=== PATIENT | male | born 1940 | race Caucasian/White ===

== ENCOUNTER → 2019-12-18 | Outpatient (CLI) | payer MEDICARE ==
--- NOTE | 2019-12-18 14:30 | Diagnostic Imaging Report ---
PROCEDURE: CT head without contrast. TECHNIQUE: Multiple contiguous axial images were obtained through the brain without the use of intravenous contrast. Auto Exposure Controls were utilized during the CT exam to meet ALARA standards for radiation dose reduction. INDICATION: Dizziness. COMPARISON: None. FINDINGS: No large acute territorial ischemia, mass, or hemorrhage. Chronic microvascular disease is seen in the periventricular and subcortical white matter. The ventricles and cortical sulci are prominent, consistent with generalized volume loss. The basilar cisterns are patent and unremarkable. The calvarium is intact. The visualized paranasal sinuses are clear. IMPRESSION: 1. No large acute territorial ischemia, mass, or hemorrhage. 2. Chronic microvascular disease. 3. Generalized volume loss. Dictated by: Dictated on workstation # [id number]
== END ==
LOC: CARD 13:32
PROVIDERS: ATTEND Family Medicine
DX: I99.8 Other disorder of circulatory system (principal); R42 Dizziness and giddiness
CPT/HCPCS: 70450; 93306

== ENCOUNTER → 2021-08-13 | Outpatient (CLI) | payer MEDICARE ==
--- NOTE | 2021-08-13 11:28 | Diagnostic Imaging Report ---
INDICATION: Left shoulder pain, picking something up with shoulder popped. TECHNIQUE: Three views of the left shoulder CORRELATION STUDY: None FINDINGS: There is diastases at the acromioclavicular joint. Maybe owing to prior surgery or perhaps osteolysis from prior trauma. Alignment otherwise relatively anatomic. Glenohumeral alignment appears maintained. There is some soft tissue calcification along superior lateral humeral head likely owing to chronic calcific tendinosis. No acute bony abnormality. IMPRESSION: 1. Negative for acute bony abnormality of the left shoulder. Findings do suggest degenerative change along with likely chronic calcific tendinosis. Additionally, there has either been prior surgery with resection distal clavicle versus osteomyelitis perhaps from prior injury. Given symptoms, if further assessment desired, MRI would be recommended. Dictated by: Dictated on workstation # [id number]
== END ==
LOC: RAD FS 10:06
PROVIDERS: ATTEND Nurse Practitioner
DX: M25.512 Pain in left shoulder (principal)
CPT/HCPCS: 73030

== ENCOUNTER 2021-10-24 14:06 | Emergency (ER) | payer MEDICARE ==
[~2021-10-24] VITALS: Ht 177.8 cm; Wt 85.7 kg
--- OUTSIDE RECORDS SUMMARY | 2021-10-24 14:11 | XMS REPORT | Clinical Summary ---
Author Author [facility] Organization [facility] Address Unknown Phone Unavailable Care Team Providers Care Plastics Sheet Finishing Press Operator Name Role Phone Rufus Mabry MD Unavailable Unavailable José PAGE PA-C, James R Unavailable [phone] Lucrecia Dang MD PCP Unavailable Source Comments Some departments are not documenting in the electronic medical record. If you d o not see the information that you expected, contact Release of Information in [facility] [employer] Information Management department at [phone] for further assistan ce in locating additional records.[facility] Allergies No known active allergies Medications End Date Status Medication Sig Dispensed Refills Start Date Active MULTIVITAMIN PO Take 1 Tab by 0 mouth daily. Active GLUC GONZALES DIPO CH/LARISA Take 1 Tab by 0 GONZALES/C/JUSTIN (GLUCOSAM GONZALES mouth daily. [id number] PO) Active Vacuum Erection Device Use vacuum 1 Kit 0 System kitIndications: ED erection 5 (erectile dysfunction) device as directed for post-prostate ctomy ED (137.48). Active other medication 1 Dose. 0 Testosterone boost Active Needle (Disp) 27 G 27 Use as 20 each 11/29 gauge x 1/2" directed. 8 ndleIndications: Erectile dysfunction following radical prostatectomy Active Syringe (Disposable) 1 mL Use as 20 Syringe 11 syrgIndications: Erectile directed. 8 dysfunction following radical prostatectomy Active donepezil (ARICEPT) 10 mg 0 tablet 8 Active mercaptopurine 0 (PURINETHOL) 50 mg tablet 9 Active celecoxib (CELEBREX) 200 0 mg capsule 9 Active alprostadil 20 mcg/mL Inject 0.4 mL 10 mL 3 soln IC into base of 0 inj(cmpd)Indications: penis as erectile dysfunction directed as Needed. Max 1 injection/ 24-48 hrs. Indications: the inability to have an erection Active Problems Problem Noted Date History of prostate cancer Overview: Formatting of this note might be differ ent from the original. PSA = 14.3 ng/mL. PNBx (01/16/2014): cT1c; (R) [place] 4+ 3=7, 2/6 cores, 80-90%; (R) [place] 3+4=7, 1/6 cores, 90%; (R) [place] 3+3= 6, 2/6 cores, 5-75%; (L) [place] 3+3=6, 1/6 cores, 25%; Cyst [place] 4+3 =7; Dr. Hamilton. (L) Nerve Sparing Robotic Asst Lap Pros tatectomy -- 03/05/2014; Dr. Mabry. pT3b N0 Mx, [place] 4+3=7, Margins Nega tive. L ast Assessment & Plan: Formatting of this note might be differ ent from the original. PSA reviewed & remains undetectable. RTC 1 yr w/ PSA prior. Erectile dysfunction following radical prostatectomy Overview: Formatting of this note might be differ ent from the original. (+)baseline ED prior to radical prostat ectomy. Used Viagra or Levitra prior to surgery w/ satisfactory results. Failed post-prostatectomy Viagra. Trie d Viagra 100 mg w/o satisfactory results. Obtained vacuum erection device (HARSHAD). Taught penile injection technique -- . Functional erections w/ Alprostadil 20 mcg/mL; 0.6 mL/inj. -- decreased to 0.4 mL/ inj w/ satisfac tory results. L ast Assessment & Plan: Formatting of this note might be differ ent from the original. Continue Alprostadil 8 mcg/ inj prn. Advised against using ICI and PDE-5 inh ibitors w/in 24-48 hrs of each other. HEMANTH (stress urinary incontinence), male Overview: Formatting of this note might be differ ent from the original. Post-Prostatectomy HEMANTH L ast Assessment & Plan: Formatting of this note might be differ ent from the original. Continue Kegel exercises prn. Surgical History Surgery Date Site/Laterality Comments BACK SURGERY HX KNEE ARTHROSCOPY HX TONSILLECTOMY HX ROTATOR CUFF REPAIR Right HX ROTATOR CUFF REPAIR Left RADICAL PROSTATECTOMY 03/05/2014 (L) Nerve [place] KUMAR; Dr. Mabry INGUINAL HERNIA REPAIR w/ mesh Medical History Medical History Date Comments Arthritis Prostate cancer (HCC) 01/16/2014 Erectile dysfunction Inflammatory bowel disease Osteoarthritis HEMANTH (stress urinary incontinence), 03/19/2014 Pos t-Prostatectomy HEMANTH male Family History Medical History Relation Name Comments Cancer Other Diabetes Other Relation Name Status Comments Daughter Alive Other Social History Date Tobacco Use Types Packs/Day Years Used Never Smoker Smokeless Tobacco: Never Used Comments Alcohol Use Standard Drinks/Week No 0 (1 standard drink = 0.6 o z pure alcohol) Sex Assigned at Date Recorded Male 03/06/2021 8:29 AM CDT Last Filed Vital Signs Reading Time Taken Comments Vital Sign 129/70 03/07/2019 10:23 AM CDT Blood Pressure 67 03/07/2019 10:23 AM CDT Pulse 36.3 C (97.4 F) 03/06/2014 11:35 AM CDT Temperature - - Respiratory Rate 100% 03/06/2014 11:35 AM CDT Oxygen Saturation - - Inhaled Oxygen Concentration 86.6 kg (191 lb) 03/07/2019 10:23 AM CDT Weight 177.8 cm (5' 10") 03/07/2019 10:23 AM CDT Height 27.41 03/07/2019 10:23 AM CDT Body Mass Index Plan of Treatment Health Maintenance Due Date Last Done Comments MEDICARE ANNUAL WELLNESS 1940 VISIT DTAP/TDAP VACCINES (1 - 1959 Tdap) PHYSICAL (COMPREHENSIVE) 1959 EXAM SHINGLES RECOMBINANT 1991 VACCINE (1 of 2) PNEUMONIA (PPSV23) 2006 VACCINE (1 of 1 - PPSV23) INFLUENZA VACCINE 06/29/2021 Results Not on filefrom Last 3 Months Insurance Type Payer Benefit Subscriber ID Effective Phone Address Plan / Dates Group Medicare UHC MEDICARE UHC [id number] 2020-P [phone] MEDICARE resent [id number] [place] [id number] Advance Directives Patient Nursing Clinical Director Explanation Type Date Recorded Advance 03/05/2014 9:20 AM Directive/DPOA Date Inactivated Comments Code Status Date Activated 03/06/2014 4:37 PM Full Code 03/05/2014 8:45 PM Provider has discussed Code Status No, more discussi on w/Patient or Family? needed Care Teams Start Date End Date Plastics Sheet Finishing Press Operator Relationship Specialty 02/27/14 Lucrecia Dang MD PCP - General Family Forwarding Address Medicine Unknown 02/13/14 Rufus Mabry MD Urology Forwarding Address Unknown Left [facility] 04/28/2019 02/14/14 New Kumar III, Urology PA-C [address] [facility] [address] [place] [address]
--- NOTE | 2021-10-24 14:46 | Diagnostic Imaging Report ---
CLINICAL INDICATION: Patient with shortness of breath. Exam: Portable chest x-ray upright view. Comparisons: None. Findings: Lungs/pleura: Lungs are clear. There is no pneumothorax. There is no pleural effusion. Mediastinum: Unremarkable. Pulmonary vasculature: Unremarkable. Heart: Borderline cardiomegaly for portable projection. Bones/extrathoracic soft tissue: There are degenerative spurs involving the thoracic spine. Impression: 1: There is no lung infiltrate. 2: Borderline cardiomegaly for portable projection. There is no significant pulmonary vascular congestion. Dictated by: Dictated on workstation # [id number]
[2021-10-24 15:04] LABS: BASOPHILS % (AUTO) 1 % (0-10); EOSINOPHILS % (AUTO) 0 % (0-10); HEMATOCRIT 40 % (40-54); HEMOGLOBIN 13.3 g/dL (13.3-17.7); LYMPHOCYTES % (AUTO) 12 % (12-44); MEAN CORPUSCULAR HEMOGLOBIN 33 pg (25-34); MEAN CORPUSCULAR HGB CONC 33 g/dL (32-36); MEAN CORPUSCULAR VOLUME 99 fL (80-99); MEAN PLATELET VOLUME 9.5 fL (9.0-12.2); MONOCYTES % (AUTO) 7 % (0-12); NEUTROPHILS % (AUTO) 80 % (42-75); PLATELET COUNT 286 10^3/uL (130-400); WHITE BLOOD COUNT 6.5 10^3/uL (4.3-11.0)
[2021-10-24 15:05] LABS: LYMPHOCYTES # (AUTO) 0.8 X 10^3 (1.0-4.0); MONOCYTES # (AUTO) 0.4 X 10^3 (0.0-1.0); NEUTROPHILS # (AUTO) 5.2 X 10^3 (1.8-7.8)
[2021-10-24 15:15] LABS: CARBON DIOXIDE 25 MMOL/L (21-32); CHLORIDE 101 MMOL/L (98-107); SODIUM 136 MMOL/L (135-145)
[2021-10-24 15:16] LABS: ALANINE AMINOTRANSFERASE 21 U/L (0-55); ALBUMIN 4.3 GM/DL (3.2-4.5); ALKALINE PHOSPHATASE 59 U/L (40-136); BILIRUBIN,TOTAL 0.7 MG/DL (0.1-1.0); BUN/CREATININE RATIO 19; CALCIUM 9.6 MG/DL (8.5-10.1); CREATININE SERUM 0.99 MG/DL (0.60-1.30); GFR ESTIMATED 73; GLUCOSE 103 MG/DL (70-105); TOTAL PROTEIN 7.8 GM/DL (6.4-8.2)
--- NOTE | 2021-10-24 16:12 | ED Dyspnea ---
General Chief Complaint: Respiratory Problems Stated Complaint: SOB Nursing Triage Note: PT AMBULATE TO ROOM FS05 WITH C/O SOB X1 WEEK. PT REPORTS X4 EPISODES OF SOB UPON EXERTION. PT STATES THAT BREATHING IS NORMAL WHEN AT REST. PT REPORTS "BURNING IN MY LUNGS". Source of Information: Patient History of Present Illness Date Seen by Provider: Oct 24, 2021 Time Seen by Provider: 15:20 Initial Comments 81-year-old male presenting with complaints of recurrent dyspnea on exertion in the last week. He reports having a burning sensation into his lungs in the middle of his chest with exertion as well. Has had no history of prior cardiac or pulmonary problems. He denies having nausea, vomiting, headache, numbness or tingling in his arms or legs, leg swelling, calf pain, abdominal pain, cough, fever or chills. He reports his symptoms improved with rest. He has had no recurrence of chest burning or shortness of breath at rest. He denies any family history of heart disease that he is aware of. Timing/Duration: 1 Week Severity: Moderate Activities at Onset: Activity Prior Episodes/Possible Cause: Occasional Episodes (3-4 episodes of this week, all with exertion) Modifying Factors: Worse With Activity; Improves With Rest Associated Symptoms: Chest Pain (burning in chest with activity) Allergies and Home Medications Allergies Coded Allergies: No Known Drug Allergies (Unverified , 10/24/21) Patient Home Medication List Home Medication List Reviewed: Yes Review of Systems Review of Systems Constitutional: No chills, No fever EENTM: no symptoms reported Respiratory: see HPI Cardiovascular: see HPI; No edema, No palpitations Gastrointestinal: see HPI Genitourinary: no symptoms reported Musculoskeletal: no symptoms reported Skin: no symptoms reported Psychiatric/Neurological: No Symptoms Reported Endocrine: Denies Excessive Sweating Hematologic/Lymphatic: Denies Blood Clots Past [id number]-[id number]-[id number] Hx Patient Social History Tobacco Use?: No Smoking Status: Never a Smoker Smokeless Tobacco Frequency: Never a User Use of E-Cig and/or Vaping dev: No Use of E-Cig and/or Vaping Rebel: Never a User Substance use?: No Alcohol Use?: No Pt feels they are or have been: No Immunizations Up To Date First/Initial COVID19 Vaccinat: UNKNOWN DATE Second COVID19 Vaccination Kvng: UNKNOWN DATE COVID19 Vaccine Power Saw Operator: REMY Past Medical History Orthopedic Respiratory: No Cardiac: No Physical Exam Vital Signs Vital Signs - First Documented 10/24/21 10/24/21 14:13 16:24 Temp 36.2 Pulse 78 Resp 16 B/P (MAP) 182/85 (117) Pulse Ox 98 O2 Delivery Room Air Capillary Refill : Less Than 3 Seconds Height, Weight, BMI Height: '" Weight: lbs. oz. kg; 27.00 BMI Method: General Appearance: No Apparent Distress, WD/WN HEENT: PERRL/EOMI, Normal ENT Inspection, Pharynx Normal Neck: Full Range of Motion, Normal Inspection, Non Tender, Supple Respiratory: Chest Non Tender, Lungs Clear, Normal Breath Sounds, No Accessory Muscle Use, No Respiratory Distress Cardiovascular: Regular Rate, Rhythm, Normal Peripheral Pulses Gastrointestinal: Normal Bowel Sounds, No Pulsatile Mass, Non Tender, Soft Rectal: Deferred Extremity: Normal Capillary Refill, No Calf Tenderness, No Pedal Edema Neurologic/Psychiatric: Alert, Oriented x3, floor care specialist II-XII Norm as Tested Skin: Normal Color, Warm/Dry Progress/Results/Core Measures Results/Orders Lab Results Laboratory Tests Test 10/24/21 14:25 10/24/21 16:07 Range/Units White Blood Count 6.5 4.3-11.0 10^3/uL Red Blood Count 4.03 L 4.30-5.52 10^6/uL Hemoglobin 13.3 13.3-17.7 g/dL Hematocrit 40 40-54 % Mean Corpuscular Volume 99 80-99 fL Mean Corpuscular Hemoglobin 33 25-34 pg Mean Corpuscular Hemoglobin Concent 33 32-36 g/dL Red Cell Distribution Width 13.4 10.0-14.5 % Platelet Count 286 130-400 10^3/uL Mean Platelet Volume 9.5 9.0-12.2 fL Immature Granulocyte % (Auto) 0 % Neutrophils (%) (Auto) 80 H 42-75 % Lymphocytes (%) (Auto) 12 12-44 % Monocytes (%) (Auto) 7 0-12 % Eosinophils (%) (Auto) 0 0-10 % Basophils (%) (Auto) 1 0-10 % Neutrophils # (Auto) 5.2 1.8-7.8 X 10^3 Lymphocytes # (Auto) 0.8 L 1.0-4.0 X 10^3 Monocytes # (Auto) 0.4 0.0-1.0 X 10^3 Eosinophils # (Auto) 0.0 0.0-0.3 10^3/uL Basophils # (Auto) 0.0 0.0-0.1 10^3/uL Immature Granulocyte # (Auto) 0.0 0.0-0.1 10^3/uL Sodium Level 136 135-145 MMOL/L Potassium Level 5.0 3.6-5.0 MMOL/L Chloride Level 101 98-107 MMOL/L Carbon Dioxide Level 25 21-32 MMOL/L Anion Gap 10 5-14 MMOL/L Blood Urea Nitrogen 19 H 7-18 MG/DL Creatinine 0.99 0.60-1.30 MG/DL Estimat Glomerular Filtration Rate 73 BUN/Creatinine Ratio 19 Glucose Level 103 70-105 MG/DL Calcium Level 9.6 8.5-10.1 MG/DL Corrected Calcium 9.4 8.5-10.1 MG/DL Total Bilirubin 0.7 0.1-1.0 MG/DL Aspartate Amino Transf (AST/SGOT) 23 5-34 U/L Alanine Aminotransferase (ALT/SGPT) 21 0-55 U/L Alkaline Phosphatase 59 40-136 U/L Troponin I < 0.30 <0.30 NG/ML C-Reactive Protein < 0.30 <0.50 MG/DL Pro-B-Type Natriuretic Peptide 222.9 H <75.0 PG/ML Total Protein 7.8 6.4-8.2 GM/DL Albumin 4.3 3.2-4.5 GM/DL My Orders Orders - PRASHANTH HART MD Cbc With Automated Diff (10/24/21 14:34) Comprehensive Metabolic Panel (10/24/21 14:34) Chest 1 View Ap/Pa Only (10/24/21 14:34) Ekg Tracing (10/24/21 14:34) O2 (10/24/21 14:34) Ed Iv/Invasive Line Start (10/24/21 14:34) Monitor-Rhythm Ecg Trace Only (10/24/21 14:34) Crp Fs (10/24/21 14:34) Troponin I Fs (10/24/21 14:34) Probnp Fs (10/24/21 14:34) Covid 19 Inhouse Test (10/24/21 16:05) Vital Signs/I&O 10/24/21 10/24/21 10/24/21 14:13 14:13 16:24 Temp 36.2 Pulse 78 73 Resp 16 17 B/P (MAP) 182/85 (117) 161/68 Pulse Ox 98 O2 Delivery Room Air Room Air Room Air Blood Pressure Mean: 117 Progress Progress Note #1: Progress Note Order chest x-ray, electrocardiogram, basic labs including cardiac enzymes. From the sounds of it with his dyspnea and burning coming on when he has exertion this could be related back to his heart. Differential diagnosis would include acute coronary syndrome, congestive heart failure, pneumonia, deconditioning, asthma, high blood pressure Progress Note #2: Progress Note Electrocardiogram does not show any acute ST elevation. The chest x-ray was not showing any acute effusion or pneumothorax. His basic labs appeared stable without acute significant abnormality. His white blood cell count was stable, basic electrolytes and cardiac enzymes did not demonstrate any acute significant abnormality. Progress Note #3: Progress Note Reviewed with patient that all of his testing had come back okay and there were no acute abnormal findings. Reassured that this helped to rule out several bad malignant type processes that could be causing her symptoms. He may still need a cardiac stress test to further evaluate his dyspnea on exertion. Counseled on return and follow up precautions. Progress Note #4: Progress Note Since his dyspnea was on exertion he had burning in his chest with the symptoms earlier this morning and has been more than 6 hours since his episode and testing was performed in the ED it was felt that his initial set of cardiac enzymes was adequate and he would not need repeat cardiac enzyme testing. Initial ECG Impression Date: Oct 24, 2021 Initial ECG Impression Time: 14:14 Initial ECG Rate: 68 Initial ECG Rhythm: Normal Sinus Initial ECG Comparisson: No Previous ECG Available Comment Normal sinus rhythm with a heart rate of 68 bpm. Nonspecific intraventricular conduction delay. WA interval [address] elevation. QT interval 4 and 45 ms with a QTc interval 474 ms. No prior tracing available for compar thomas. Diagnostic Imaging Diagonstic Imaging: Xray Plain Films/CT/US/NM/MRI: chest Comments [facility]. [place], [place] NAME: JOE PAVON [place] [facility] REC#: [id number] PT STATUS: REG ER : 1940 PHYSICIAN: PRASHATNH HART MD ADMIT DATE: 10/24/21/ER FS Signed Date of Exam:10/24/21 CHEST 1 VIEW AP/PA ONLY CLINICAL INDICATION: Patient with shortness of breath. Exam: Portable chest x-ray upright view. Comparisons: None. Findings: Lungs/pleura: Lungs are clear. There is no pneumothorax. There is no pleural effusion. Mediastinum: Unremarkable. Pulmonary vasculature: Unremarkable. Heart: Borderline cardiomegaly for portable projection. Bones/extrathoracic soft tissue: There are degenerative spurs involving the thoracic spine. Impression: 1: There is no lung infiltrate. 2: Borderline cardiomegaly for portable projection. There is no significant pulmonary vascular congestion. Dictated by: Dictated on workstation # [id number] Dict: 10/24/21 1444 Trans: 10/24/21 1601 CVB [id number] Interpreted by: SALAZAR BARBOSA MD Electronically signed by: SALAZAR BARBOSA MD 10/24/21 1601 Reviewed: Reviewed by Me Departure Impression Primary Impression: Dyspnea on exertion Additional Impression: Burning chest pain Disposition: HOME, SELF-CARE Condition: Stable Departure-Patient Inst. Decision time for Depature: 16:13 Referrals: WONG ALMAZAN MD (PCP/Family) Primary Care Physician DEJUAN CORONA MD Patient Instructions: Shortness of Breath, Adult ED Add. Discharge Instructions: Rest and avoid exerting yourself. Continue on your regular medicines. Follow up with Dr. Almazan Wednesday after your Colonoscopy to see about setting up a stress test. Alternatively, you could try calling Dr. Corona with Cardiology directly about setting up a stress test, if your insurance is a PPO and allows you to set your appointments directly. If you have shortness of breath or pain while at rest and not exerting yourself then you should be re-examined. All discharge instructions reviewed with patient and/or family. Voiced understanding. PRASHANTH HART MD Oct 24, 2021 16:12
[2021-10-24 16:24] VITALS: BP 161/68
== END 2021-10-24 16:24 | disposition home or self-care (01) ==
LOC: EDUNIT# 14:06 → ER FS 14:08
DX: R06.09 Other forms of dyspnea (principal); R07.89 Other chest pain; Z20.822 Contact with and (suspected) exposure to COVID-19
CPT/HCPCS: 36415; 71045; 80053; 83880; 84484; 85025; 86141; 87636; 93005; 93041

== ENCOUNTER 2021-11-25 08:47 | Outpatient (CLI) | payer MEDICARE ==
[~2021-11-25] VITALS: Ht 177.8 cm; Wt 83.9 kg
[2021-11-25 09:45] VITALS: BP 160/63
[2021-11-25 09:46] VITALS: BP 151/60
[2021-11-25] MEDS ORDERED: BAMLANIVIMAB 700 MG/ETESEVIMAB 1,400 MG IN NS IV ONE ×3 (10:30)
[2021-11-25] MEDS ORDERED: ACETAMINOPHEN 500 MG TAB (TYLENOL) PO PRN (10:30)
[2021-11-25] MEDS ORDERED: diphenhydrAMINE 50 MG/ML INJ (BENADRYL) IV PRN (10:30)
[2021-11-25] MEDS ORDERED: ONDANSETRON 4 MG/2 ML (SDV) Z0FRAN IV PRN (10:30)
[2021-11-25] MEDS ORDERED: EPINEPHrine INJECTION 1 MG/ML AMP IM PRN (10:30)
[2021-11-25 11:40] VITALS: BP 179/80
== END 2021-11-25 11:43 | disposition home or self-care (01) ==
LOC: INFUSION 08:47
PROVIDERS: ATTEND Internal Medicine
DX: U07.1 COVID-19 (principal)

== ENCOUNTER → 2021-12-02 | Outpatient (CLI) | payer MEDICARE | LOC: CARD 11:00 | PROVIDERS: ATTEND Internal Medicine Cardiovascular Disease | DX: I11.9 Hypertensive heart disease without heart failure (principal); I35.1 Nonrheumatic aortic (valve) insufficiency | CPT/HCPCS: 93306 ==

== ENCOUNTER 2021-12-26 09:07 | Inpatient (IN) | payer MEDICARE ==
[~2021-12-26] VITALS: Ht 170 cm; Wt 85.4 kg
[2021-12-26] MEDS ORDERED: HEParin (CATH LAB) 2,000 ML IV ONE (09:19)
[2021-12-26] MEDS ORDERED: NS IV 1000 ML 1,000 ML ONE (09:19)
[2021-12-26] MEDS ORDERED: LIDOCAINE 1% INJ 20 ML VIAL ONE (09:19)
[2021-12-26] MEDS ORDERED: fentaNYL INJ 100 MCG/2 ML AMP ONE (09:20)
[2021-12-26] MEDS ORDERED: MIDAZOLAM 5 MG/5 ML (VERSED) VIAL ONE (09:20)
[2021-12-26 09:25] LABS: BASOPHILS # (AUTO) 0.1 10^3/uL (0.0-0.1); BASOPHILS % (AUTO) 1 % (0-10); EOSINOPHILS # (AUTO) 0.1 10^3/uL (0.0-0.3); EOSINOPHILS % (AUTO) 1 % (0-10); HEMATOCRIT 38 % (40-54); HEMOGLOBIN 12.3 g/dL (13.3-17.7); LYMPHOCYTES # (AUTO) 1.8 10^3/uL (1.0-4.0); LYMPHOCYTES % (AUTO) 21 % (12-44); MEAN CORPUSCULAR HEMOGLOBIN 34 pg (25-34); MEAN CORPUSCULAR HGB CONC 33 g/dL (32-36); MEAN CORPUSCULAR VOLUME 103 fL (80-99); MEAN PLATELET VOLUME 10.5 fL (9.0-12.2); MONOCYTES # (AUTO) 0.7 10^3/uL (0.0-1.0); MONOCYTES % (AUTO) 9 % (0-12); NEUTROPHILS # (AUTO) 5.8 10^3/uL (1.8-7.8); NEUTROPHILS % (AUTO) 69 % (42-75); PLATELET COUNT 310 10^3/uL (130-400); WHITE BLOOD COUNT 8.4 10^3/uL (4.3-11.0)
[2021-12-26] MEDS ORDERED: ASPIRIN 81 MG CHEW (CHILDREN'S ASA) PO ONE (09:30)
[2021-12-26 09:31] LABS: PROTHROMBIN TIME PATIENT 13.8 SEC (12.2-14.7)
[2021-12-26 09:38] VITALS: BP 126/65
[2021-12-26] MEDS ORDERED: NITRO DRIP 25000 MCG/D5W 250 ML IV ONE (09:41)
[2021-12-26] MEDS ORDERED: HEParin 1000 UNIT/ML (10ML VIAL) FOR BOLUS ONE (09:41)
--- NOTE | 2021-12-26 09:42 | ED Chest Pain ---
General Chief Complaint: Chest Pain Stated Complaint: UNSTABLE ANGINA Nursing Triage Note: [facility]. Pt reports chest pressure x 2 months. Source: patient Exam Limitations: no limitations History of Present Illness Date Seen by Provider: Dec 26, 2021 Time Seen by Provider: 09:17 Initial Comments Patient here from stress test lab with concerns for ST elevation WI. Apparently during the testing, patient had chest heaviness and central chest pain and then had EKG changes concerning for STEMI. There is consideration of going directly to [facility] but insurance required evaluation. On arrival here, patient is a little better but still has some residual chest discomfort. Notes that he has had increasing intermittent discomfort since August that he describes as chest heaviness and sometimes central chest pain that is left-sided. Nonradiating. Is worsening both in frequency and intensity. Patient has had 2 vaccinations for Covid and did have Covid illness this past October. Timing/Duration: getting worse, changing over time, other (Last 3 months but worsening) Severity/Quality: moderate, dull, pressure Location: central Radiation: no radiation Activities at Onset: none Prior CP/Workup: stress test Modifying Factors: worse with exercise; improves with rest ASA po WEB PRESS OPERATOR ASSISTANT: No NTG SL WEB PRESS OPERATOR ASSISTANT: Yes Associated Symptoms: No abdominal pain, No back pain, No dizziness, No nausea/vomiting, No shortness of breath, No weakness Allergies and Home Medications Allergies Coded Allergies: No Known Drug Allergies (Unverified , 10/24/21) Patient Home Medication List Home Medication List Reviewed: Yes Review of Systems Review of Systems Constitutional: see HPI; No chills, No fever EENTM: No Nose Congestion, No Throat Pain Respiratory: Denies Cough, Denies Shortness of Air Cardiovascular: Chest Pain; Denies Edema Gastrointestinal: Denies Nausea, Denies Vomiting Genitourinary: No Symptoms Reported Musculoskeletal: No back pain, No joint pain Skin: No change in color, No lesions Psychiatric/Neurological: No Symptoms Reported All Other Systems Reviewed Negative Unless Noted: Yes Past Dzetabb-[id number]-[id number] Hx Patient Social History Tobacco Use?: No Substance use?: No Alcohol Use?: No Immunizations Up To Date First/Initial COVID19 Vaccinat: UNKNOWN DATE Second COVID19 Vaccination Kvng: january 2021 COVID19 Vaccine Simulation Developer: mai Past Medical History Surgeries: Yes Orthopedic, Prostatectomy Respiratory: No Cardiac: No Neurological: No Genitourinary: Yes Prostate Problems Gastrointestinal: Yes Colitis Family Medical History Reviewed Nursing Family Hx No Pertinent Family Hx Physical Exam Vital Signs Vital Signs - First Documented 12/26/21 09:19 Temp 36.6 Pulse 40 Resp 18 B/P (MAP) 134/93 (107) Pulse Ox 96 O2 Delivery Room Air Capillary Refill : Less Than 3 Seconds Height, Weight, BMI Height: '" Weight: lbs. oz. kg; 29.00 BMI Method: General Appearance: No Apparent Distress, WD/WN HEENT: PERRL/EOMI, Pharynx Normal Neck: Non Tender, Supple Respiratory: Lungs Clear, Normal Breath Sounds Cardiovascular: Regular Rate, Rhythm, No Murmur Gastrointestinal: Non Tender, Soft Extremity: Normal Range of Motion, Non Tender, No Calf Tenderness, No Pedal Edema Neurologic/Psychiatric: Alert, Oriented x3 Skin: Normal Color, Warm/Dry Progress/Results/Core Measures Results/Orders Lab Results Laboratory Tests Test 12/26/21 09:00 Range/Units White Blood Count 8.4 4.3-11.0 10^3/uL Red Blood Count 3.65 L 4.30-5.52 10^6/uL Hemoglobin 12.3 L 13.3-17.7 g/dL Hematocrit 38 L 40-54 % Mean Corpuscular Volume 103 H 80-99 fL Mean Corpuscular Hemoglobin 34 25-34 pg Mean Corpuscular Hemoglobin Concent 33 32-36 g/dL Red Cell Distribution Width 14.5 10.0-14.5 % Platelet Count 310 130-400 10^3/uL Mean Platelet Volume 10.5 9.0-12.2 fL Immature Granulocyte % (Auto) 0 % Neutrophils (%) (Auto) 69 42-75 % Lymphocytes (%) (Auto) 21 12-44 % Monocytes (%) (Auto) 9 0-12 % Eosinophils (%) (Auto) 1 0-10 % Basophils (%) (Auto) 1 0-10 % Neutrophils # (Auto) 5.8 1.8-7.8 10^3/uL Lymphocytes # (Auto) 1.8 1.0-4.0 10^3/uL Monocytes # (Auto) 0.7 0.0-1.0 10^3/uL Eosinophils # (Auto) 0.1 0.0-0.3 10^3/uL Basophils # (Auto) 0.1 0.0-0.1 10^3/uL Immature Granulocyte # (Auto) 0.0 0.0-0.1 10^3/uL My Orders Orders - RENETTA STRICKLAND MD Cbc With Automated Diff (12/26/21 09:17) Magnesium (12/26/21 09:17) Chest 1 View, Ap/Pa Only (12/26/21 09:17) Ekg Tracing (12/26/21 09:17) Comprehensive Metabolic Panel (12/26/21 09:17) Myoglobin Serum (12/26/21 09:17) Protime With Inr (12/26/21 09:17) Partial Thromboplastin Time (12/26/21 09:17) O2 (12/26/21 09:17) Monitor-Rhythm Ecg Trace Only (12/26/21 09:17) Lipid Panel (12/27/21 06:00) Ed Iv/Invasive Line Start (12/26/21 09:17) Troponin I Ju (12/26/21 09:17) Aspirin Chewable Tablet (Baby Aspirin Ch (12/26/21 09:30) Vital Signs/I&O 12/26/21 09:19 Temp 36.6 Pulse 40 Resp 18 B/P (MAP) 134/93 (107) Pulse Ox 96 O2 Delivery Room Air Blood Pressure Mean: 107 Progress Progress Note : Progress Note Seen and evaluated on arrival from stress lab. IV, labs and EKG ordered. ASA [address] Corona presented immediately with the patient. EKG concerning for ST elevation in aVR and V1 with depression in V3 and V4 which causes concern for STEMI. [facility] notified. Patient to [facility] at [phone]. Family and patient agree with plan. Initial ECG Impression Date: Dec 26, 2021 Initial ECG Impression Time: 09:21 Initial ECG Rate: 40 Initial ECG Rhythm: S.Andrew Initial ECG Impression: Acute WI Comment Sinus bradycardia with ST depression noted in V3 and V4 as well as lead I. Mild elevation noted and aVR and V1. Discussed and reviewed with nursery attendant and we agree that there are concerns for STEMI. Departure Communication (Admissions) Time/Spoke to Admitting Phy: 09:21 Impression Primary Impression: STEMI (ST elevation myocardial infarction) Qualified Codes: I21.3 - ST elevation (STEMI) myocardial infarction of unspecified site Disposition: 09 ADMITTED INPATIENT Condition: Stable Admissions Decision to Admit Reason: Admit from ER (General) Decision to Admit/Date: Dec 26, 2021 Time/Decision to Admit Time: 09:25 Departure-Patient Inst. Referrals: WONG ALMAZAN MD (PCP/Family) Primary Care Physician RENETTA STRICKLAND MD Dec 26, 2021 09:42
[2021-12-26 09:50] LABS: ALBUMIN 4.1 GM/DL (3.2-4.5); POTASSIUM 4.1 MMOL/L (3.6-5.0)
[2021-12-26 09:51] LABS: CALCIUM 9.3 MG/DL (8.5-10.1)
[2021-12-26 09:52] LABS: TOTAL PROTEIN 7.3 GM/DL (6.4-8.2)
[2021-12-26 09:54] LABS: BILIRUBIN,TOTAL 1.4 MG/DL (0.1-1.0)
[2021-12-26 09:56] LABS: CREATININE SERUM 1.2 MG/DL (0.60-1.30)
[2021-12-26 09:59] LABS: MAGNESIUM 2.4 MG/DL (1.6-2.4)
[2021-12-26] MEDS ORDERED: CLOPIDOGREL 300 MG (PLAVIX) TABLET PO ONE (10:38)
[2021-12-26] MEDS ORDERED: PATIENT MAY USE OWN MEDS, ALL PO SCH (10:45)
--- NOTE | 2021-12-26 10:51 | Cardiology History & Physical ---
HPI-Cardiology Cardiology Consultation Date of Consultation 12/26/21 Date of Admission Time Seen by Provider: 10:46 Indication: Acute myocardial infarction HPI 81 years old gentleman with history of hypertension, has been complaining of chest pain resembling unstable angina, shortness of breath and episodes of bradycardia, he was scheduled for stress test this morning, after walking for less than 4 minutes on the treadmill, patient had significant chest pain, had significant EKG changes suggestive of acute myocardial infarction. Patient was sent to the emergency room, given sublingual nitroglycerin and reported improvement in his chest pain, continue to have subtle EKG changes in addition to severe bradycardia. Emergency cardiac catheterization was advised. PMH-Cardiology Surgeries Yes Respiratory No Cardiovascular No Neurological No Genitourinary Yes Prostate Problems Gastrointestinal Yes Colitis Other PMHx Discussed below Social History Patient Social History Marrital Status: Employed/Student: retired Smoking: Never smoker Have you traveled recently?: No Alcohol Use?: No Family Hx Significant Family History: No Pertinent Family Hx Other Noncontributory to his current condition ROS-Cardiology Review of Systems General: No Chills, No Night Sweats, No Fatigue, No Malaise, No Appetite HEENT: No Head Aches, No Visual Changes, No Eye Pain, No Ear Pain, No Dysphasia, No Sinus Congestion, No Post Nasal Drip, No Sore Throat Pulmonary: No Dyspnea, No Cough, No Pleuritic Chest Pain Cardiovascular: Chest Pain; No: Palpitations, Orthopnea, Paroxysmal Noc. Dyspnea, Edema, Lt Headedness Gastrointestinal: No: Nausea, Vomiting, Abdominal Pain, Diarrhea, Constipation, Melena, Hematochezia Genitourinary: No Dysuria, No Frequency, No Incontinence, No Hematuria, No Ret ention Musculoskeletal: No: neck pain, shoulder pain, arm pain, back pain, hand pain, leg pain, foot pain Neurological: No: Weakness, Numbness, Incoordination, Change in speech, Confusion, Seizures Home Medications & Allergies Allergies: Coded Allergies: No Known Drug Allergies (Unverified , 10/24/21) Home Medication List Reviewed: Yes Exam-Cardiology Vital Signs Vital Signs Date Time Temp Pulse Resp B/P (MAP) Pulse Ox O2 Delivery O2 Flow Rate FiO2 12/26/21 09:38 42 19 126/65 94 Room Air 12/26/21 09:19 36.6 Exam General Appearance: Alert, Oriented X3, Cooperative, No Acute Distress HEENT: Atraumatic, PERRLA Respiratory: Clear to Auscultation, Normal Air Movement Cardiovascular: Normal S1, Normal S2, No Murmurs, Other (Bradycardia) Abdominal: Normal Bowel Sounds, Soft, No Tenderness, No Hepatosplenomegaly, No Masses Extremities: No Clubbing, No Cyanosis, No Edema, Normal Pulses, No Tenderness/Swelling Skin: No Rashes, No Breakdown, No Significant Lesion Neuro: Normal Gait, Normal Speech, Strength at 5/5 X4 Ext, Normal Tone, Sensation Intact Psych/Mental Status: Mental Status NL, Mood NL Results Labs Labs Laboratory Tests 12/26/21 09:00: White Blood Count 8.4, Red Blood Count 3.65L, Hemoglobin 12.3L, Hematocrit 38L, Mean Corpuscular Volume 103H, Mean Corpuscular Hemoglobin 34, Mean Corpuscular Hemoglobin Concent 33, Red Cell Distribution Width 14.5, Platelet Count 310, Mean Platelet Volume 10.5, Immature Granulocyte % (Auto) 0, Neutrophils (%) (Auto) 69, Lymphocytes (%) (Auto) 21, Monocytes (%) (Auto) 9, Eosinophils (%) (A uto) 1, Basophils (%) (Auto) 1, Neutrophils # (Auto) 5.8, Lymphocytes # (Auto) 1.8, Monocytes # (Auto) 0.7, Eosinophils # (Auto) 0.1, Basophils # (Auto) 0.1, Immature Granulocyte # (Auto) 0.0, Prothrombin Time 13.8, INR Comment 1.0, Activated Partial Thromboplast Time 26, Sodium Level 139, Potassium Level 4.1, Chloride Level 105, Carbon Dioxide Level 21, Anion Gap 13, Blood Urea Nitrogen 27H, Creatinine 1.20, Estimat Glomerular Filtration Rate 61, BUN/Creatinine Ratio 23, Glucose Level 116H, Calcium Level 9.3, Corrected Calcium 9.2, Magnesium Level 2.4, Total Bilirubin 1.4H, Aspartate Amino Transf (AST/SGOT) 24, Alanine Aminotransferase (ALT/SGPT) 29, Alkaline Phosphatase 41, Myoglobin 63.3, Troponin I 0.031H, Total Protein 7.3, Albumin 4.1 A/P-Cardiology Admission Diagnosis Acute myocardial infarction Coronary artery disease Complete heart block Bradycardia Admission Status: Inpatient Order (span 2 midnights) Reason for Inpatient Admission: Acute myocardial infarction Complete heart block Assessment/Plan Chest pain, unstable angina, significant EKG changes after 4 minutes exercise on treadmill suggestive of acute myocardial infarction Most probably it is non-ST elevation myocardial infarction, emergency cardiac catheterization was carried out IVUS to the left main showing mild disease, severe stenosis in the right coronary artery with successful stenting. Coronary artery disease, cardiac catheterization was carried out on December 26, 2021 showing moderate stenosis in the ostium of the left main, IVUS was done and showing no significant obstructive disease at the left main, patient has severe stenosis at the distal right coronary artery successful balloon angioplasty and stenting using junior point stent 4 x 18 mm expanded to 4.2 mm with excellent results. Mild ectasia in the proximal and distal right coronary artery Severe bradycardia with 2-1 AV block and transient complete heart block, patient has been reporting episodes of severe bradycardia with a heart rate in the 30s, I am planning to proceed with pacemaker implantation Echocardiogram was done on December 02, 2021 showing normal LV size with EF 65 to 70%, right atrium dilated, aortic valve sclerosis, mild to moderate regurgitation, PA pressure 35 to 40 mmHg. Episodes of bradycardia, reporting episodes of bradycardia with a heart rate in the 30s, patient has been counting his pulse. I will evaluate a Holter monitor Increased risk of sleep apnea, complaining of fatigue, feels that he stops breathing at night. Having increasing dyspnea on exertion, however evaluate home sleep study. Lipid profile was done on June 19, 2021 showing total cholesterol 155, triglyceride 57, HDL 47, LDL 94. Mild bilateral carotid stenosis nonobstructive disease Normal lipid profile according to the patient regarding in April 2021 Abnormal EKG with sinus rhythm and left ventricular hypertrophy pattern. Plan to evaluate echocardiogram. History of back surgery knee surgery and prostate surgery Clinical Quality Measures AMI/AHF: ASA po Prior to arrival: DEJUAN Duran MD Dec 26, 2021 10:51
--- NOTE | 2021-12-26 11:06 | Cardiac Cath Report ---
Cardiac Cath Report Physician (s)/Babbitt Spinner (s) Physician DEJUAN SWANSON MD Pre-Procedure Diagnosis Pre-Procedure Diagnosis: Coronary artery disease, unstable angina Post-Procedure Note Procedure Start Date: Dec 26, 2021 Name of Procedure: Left heart catheterization IVUS to the left main coronary artery Stenting to the right coronary artery Findings/Procedure Note PROCEDURE NOTE: 81 years old gentleman with a history of chest pain and shortness of breath, reporting episodes of bradycardia, was scheduled for stress test today, had significant chest pain with ST elevation in V1 and aVR during exercise stress test, had ST depression, given nitroglycerin continue to have some EKG changes, he was sent to the emergency room and then brought for cardiac catheterization possible PTCA. After explaining the procedure to the patient, all pros and cons were explained, all questions were answered. The patient signed the consent and then he was placed on the cardiac catheterization laboratory. Groin was prepped SL fashion local anesthesia was used. Sheath placed in the right femoral artery. Ira right and left catheter were used to access the coronary system. Pigtail was used to access the left ventricular cavity. Left ventriculogram was done Left main coronary artery has an acute angle suggestive of severe stenosis, I decided to do IVUS to the left main, he was given 3000 units of heparin then I used multiple different guides and I was successful with EBU 4.0 guide then advanced a BMW wire to the circumflex artery and advanced IVUS proceeded with IVUS to the left main. Wire was removed and angiogram showed no complication. Patient was given additional 2000 units of heparin, FR guide was advanced to the right coronary artery, BMW wire was advanced and parked in the distal right coronary artery predilatation with 3.5 balloon and then I proceeded with deployment of skypoint stent 4 x 18 mm expanded to 4.2 mm with excellent results. Aortic arch angiogram At the end of the procedure the sheath was removed. Closure device was deployed FINDINGS: Hemodynamics LV 94/14, end-diastolic pressure 14 Aorta 102/40 mean of 61 ANATOMY: Left Main has an acute angled, IVUS was done to the left main showing mild to moderate disease nonobstructive disease Left Anterior Descending is slightly tortuous with mild disease nonobstructive disease Left Circumflex has mild disease nonobstructive disease Right Coronary Artery is large dominant artery with ectasia in the proximal and distal portion, severe stenosis distally, successful balloon angioplasty and stenting using 4 x 18 mm skypoint stent expanded to 4.2 mm with excellent results LV Gram was done showing normal left ventricular size and systolic function estimate ejection fraction 50% CONCLUSION: 1. Severe stenosis at the distal right coronary artery successful stenting using junior point stent 4 x 18 mm expanded to 4.2 mm, mild ectasia in the proximal and distal right coronary artery. 2. Acute angulation of the ostium of the left main, IVUS was done showing mild to moderate disease nonobstructive disease 3. Slightly tortuous LAD and circumflex system with nonobstructive disease 4. Normal left ventricular size and systolic function estimate ejection fraction 60% DISCUSSION AND RECOMMENDATION: Patient was noted to have severe bradycardia with intermittent complete heart block, he was loaded with aspirin and Plavix, I am planning to proceed with dual-chamber pacemaker. Anesthesia Type: Conscious Sedation Estimated blood loss (mL): 25 ml Contrast Amount: 130 ml Total Radiation Dose: 1329 mGy Post-Procedure Diagnosis Post-operative diagnosis: Non-ST elevation myocardial infarction Coronary artery disease Bradycardia Complete heart block DEJUAN SWANSON MD Dec 26, 2021 11:06
[2021-12-26] MEDS: NS IV 1000 ML 1,000 ML IV SCH ×2 (11:29→21:05)
[2021-12-26] MEDS ORDERED: ASPI-1238 PO (15:18)
[2021-12-26] MEDS ORDERED: ACET-3075 PO (15:18)
[2021-12-26] MEDS ORDERED: MERC50TA PO (15:18)
[2021-12-26] MEDS ORDERED: [UNRECOGNIZED DRUG - CODE] IC (15:18)
[2021-12-26] MEDS ORDERED: MULT-1136 PO (15:18)
[2021-12-26] MEDS ORDERED: [UNRECOGNIZED DRUG - OTHER] PO (15:18)
[2021-12-26] MEDS ORDERED: GLUC1CAP37 PO (15:18)
[2021-12-26] MEDS ORDERED: DONE10TA41 PO (15:18)
[2021-12-26] MEDS ORDERED: CELE200C PO (15:18)
[2021-12-27 04:57] LABS: HEMATOCRIT 33 % (40-54); HEMOGLOBIN 10.8 g/dL (13.3-17.7); MEAN CORPUSCULAR HEMOGLOBIN 33 pg (25-34); MEAN CORPUSCULAR HGB CONC 32 g/dL (32-36); MEAN CORPUSCULAR VOLUME 101 fL (80-99); MEAN PLATELET VOLUME 9.8 fL (9.0-12.2); PLATELET COUNT 223 10^3/uL (130-400); WHITE BLOOD COUNT 6.2 10^3/uL (4.3-11.0)
[2021-12-27 05:19] LABS: POTASSIUM 4.5 MMOL/L (3.6-5.0)
[2021-12-27 05:20] LABS: CALCIUM 8.6 MG/DL (8.5-10.1)
[2021-12-27 05:25] LABS: CREATININE SERUM 0.93 MG/DL (0.60-1.30)
[2021-12-27] MEDS: NS IV 1000 ML 1,000 ML IV SCH ×2 (06:57→14:20)
[2021-12-27] MEDS: CLOPIDOGREL 75 MG (PLAVIX) TABLET PO SCH (08:27)
[2021-12-27] MEDS: ASPIRIN E.C. 81 MG (ECOTRIN) TAB PO SCH (08:27)
--- NOTE | 2021-12-27 08:44 | Tele-ICU Progress Note ---
Progress Note video rounds completed 81 y/o male with CAD and heart block Went to [facility] yesterday for RCA stent/ On dual antiplatelet RX Plan for pacemaker Focused Exam Height, Weight, BMI Height: '" Weight: lbs. oz. kg; 29.65 BMI Method: Labs Laboratory Tests 12/26/21 09:00 12/27/21 04:25 Results Labs Labs Laboratory Tests 12/26/21 09:00: White Blood Count 8.4, Red Blood Count 3.65L, Hemoglobin 12.3L, Hematocrit 38L, Mean Corpuscular Volume 103H, Mean Corpuscular Hemoglobin 34, Mean Corpuscular Hemoglobin Concent 33, Red Cell Distribution Width 14.5, Platelet Count 310, Mean Platelet Volume 10.5, Immature Granulocyte % (Auto) 0, Neutrophils (%) (Auto) 69, Lymphocytes (%) (Auto) 21, Monocytes (%) (Auto) 9, Eosinophils (%) (Auto) 1, Basophils (%) (Auto) 1, Neutrophils # (Auto) 5.8, Lymphocytes # (Auto) 1.8, Monocytes # (Auto) 0.7, Eosinophils # (Auto) 0.1, Basophils # (Auto) 0.1, Immature Granulocyte # (Auto) 0.0, Prothrombin Time 13.8, INR Comment 1.0, Activated Partial Thromboplast Time 26, Sodium Level 139, Potassium Level 4.1, Chloride Level 105, Carbon Dioxide Level 21, Anion Gap 13, Blood Urea Nitrogen 27H, Creatinine 1.20, Estimat Glomerular Filtration Rate 61, BUN/Creatinine Ratio 23, Glucose Level 116H, Calcium Level 9.3, Corrected Calcium 9.2, Magnesium Level 2.4, Total Bilirubin 1.4H, Aspartate Amino Transf (AST/SGOT) 24, Alanine Aminotransferase (ALT/SGPT) 29, Alkaline Phosphatase 41, Myoglobin 63.3, Troponin I 0.031H, Total Protein 7.3, Albumin 4.1 12/27/21 04:25: White Blood Count 6.2, Red Blood Count 3.31L, Hemoglobin 10.8L, Hematocrit 33L, Mean Corpuscular Volume 101H, Mean Corpuscular Hemoglobin 33, Mean Corpuscular Hemoglobin Concent 32, Red Cell Distribution Width 14.5, Platelet Count 223, Mean Platelet Volume 9.8, Sodium Level 138, Potassium Level 4.5, Chloride Level 109H, Carbon Dioxide Level 19L, Anion Gap 10, Blood Urea Nitrogen 20H, Creatinine 0.93, Estimat Glomerular Filtration Rate 83, BUN/Creatinine Ratio 22, Glucose Level 98, Calcium Level 8.6, Triglycerides Level 54, Cholesterol Level 116, LDL Cholesterol Direct 81, VLDL Cholesterol 11, HDL Cholesterol 34L FERNANDO ALCOCER MD Dec 27, 2021 08:44
[2021-12-27] MEDS ORDERED: ceFAZolin INJECTION 1,000 MG ONE (09:06)
[2021-12-27] MEDS ORDERED: LIDOCAINE 1% INJ 20 ML VIAL ONE (09:06)
[2021-12-27] MEDS ORDERED: NS IV 1000 ML 1,000 ML ONE (09:07)
[2021-12-27] MEDS ORDERED: HEParin (CATH LAB) 1,000 ML IV ONE (09:07)
[2021-12-27] MEDS ORDERED: NS (IVPB) 50 ML ONE (09:13)
[2021-12-27] MEDS ORDERED: fentaNYL INJ 100 MCG/2 ML AMP ONE ×2 (09:19→10:11)
[2021-12-27] MEDS ORDERED: MIDAZOLAM 5 MG/5 ML (VERSED) VIAL ONE ×2 (09:20→10:11)
[2021-12-27] MEDS ORDERED: NS IV 500 ML 500 ML ONE (09:28)
--- NOTE | 2021-12-27 09:50 | Cardiology Progress Note ---
Subjective Date Seen by Provider: Dec 27, 2021 Time Seen by Provider: 09:48 Subjective/Events-last exam Patient is laying down in bed, no chest pain, complaining of fatigue, continue to have severe bradycardia Review of Systems General: No Chills, No Night Sweats; Fatigue, Malaise; No Appetite, No Other HEENT: No Head Aches, No Visual Changes, No Eye Pain, No Ear Pain, No Dysphasia, No Sinus Congestion, No Post Nasal Drip, No Sore Throat, No Other Pulmonary: No Dyspnea, No Cough, No Pleuritic Chest Pain, No Other Cardiovascular: No: Chest Pain, Palpitations, Orthopnea, Paroxysmal Noc. Dyspnea, Edema, Lt Headedness, Other Objective-Cardiology Exam Last Set of Vital Signs Vital Signs 12/27/21 12/27/21 07:39 09:00 Temp 36.6 Pulse 35 Resp 13 B/P (MAP) 137/68 Pulse Ox 98 O2 Delivery Nasal Cannula O2 Flow Rate 2.00 I&O Intake and Output 12/27/21 00:00 Intake Total 1940 ml Output Total 675 ml Balance 1265 ml Intake Oral 940 ml IV Total 1000 ml Output Urine Total 675 ml Daily Weight Change No General: Alert, Oriented X3, Cooperative, No Acute Distress HEENT: Atraumatic, PERRLA Lungs: Clear to Auscultation, Normal Air Movement Heart: Normal S1, Normal S2, No Murmurs, Other (Bradycardia) Abdomen: Normal Bowel Sounds, Soft, No Tenderness, No Hepatosplenomegaly, No Masses Extremities: No Clubbing, No Cyanosis, No Edema, Normal Pulses, No Tenderness/Swelling Skin: No Rashes, No Breakdown, No Significant Lesion Neuro: Normal Gait, Normal Speech, Strength at 5/5 X4 Ext, Normal Tone, Sensation Intact Psych/Mental Status: Mental Status NL, Mood NL Results Lab Laboratory Tests 12/27/21 04:25 A/P-Cardiology Admission Diagnosis Acute myocardial infarction Coronary artery disease Complete heart block Bradycardia Assessment/Plan Chest pain, unstable angina, significant EKG changes after 4 minutes exercise on treadmill suggestive of acute myocardial infarction Most probably it is non-ST elevation myocardial infarction, emergency cardiac catheterization was carried out IVUS to the left main showing mild disease, severe stenosis in the right coronary artery with successful stenting. Coronary artery disease, cardiac catheterization was carried out on December 26, 2021 showing moderate stenosis in the ostium of the left main, IVUS was done and showing no significant obstructive disease at the left main, patient has severe stenosis at the distal right coronary artery successful balloon angioplasty and stenting using junior point stent 4 x 18 mm expanded to 4.2 mm with excellent results. Mild ectasia in the proximal and distal right coronary artery Severe bradycardia with 2-1 AV block and multiple episodes of complete heart block, heart rate is in the 30s, patient asymptomatic, complaining of fatigue. I was planning to wait on the pacemaker implantation but due to his severe bradycardia being symptomatic I decided to proceed with the pacemaker i mplantation, I explained to the patient the increased risk of bleeding due to the dual antiplatelet therapy Echocardiogram was done on December 02, 2021 showing normal LV size with EF 65 to 70%, right atrium dilated, aortic valve sclerosis, mild to moderate regurgitation, PA pressure 35 to 40 mmHg. Increased risk of sleep apnea, complaining of fatigue, feels that he stops breathing at night. Having increasing dyspnea on exertion, probably secondary to severe bradycardia Lipid profile was done on June 19, 2021 showing total cholesterol 155, triglyceride 57, HDL 47, LDL 94. Mild bilateral carotid stenosis nonobstructive disease History of back surgery knee surgery and prostate surgery DEJUAN SWANSON MD Dec 27, 2021 09:50
--- NOTE | 2021-12-27 09:51 | Conscious Sedation/ASA ---
Conscious Sedation Pre-Proced Time 09:51 ASA Score 3 For ASA 3 and 4: Consider anesthesia and medical clearance. Also, for patients with a history of failed moderate sedation consider anesthesia. Airway Lungs Heart ASA score ASA 1: a normal healthy patient ASA 2: a patient with a mild systemic disease (mid diabetes, controlled hypertension, obesity x ASA 3: a patient with a severe systemic disease that limits activity (angina, COPD, prior Myocardial infarction) ASA 4: a patient with an incapacitating disease that is a constant threat to life (CHF, renal failure) ASA 5: a moribund patient not expected to survive 24 hrs. (ruptured aneurysm) ASA 6: a declared brain- patient whose organs are being harvested. For emergent operations, add the letter E after the classification Mallampati Classification Grade 3 Sedation Plan Analgesia, Amnesia, Plan communicated to team members, Discussed options with patient/fam, Discussed risks with patient/fam The patient is an appropriate candidate to undergo the planned procedure, sedation, and anesthesia. The patient immediately re-assessed prior to indication. DEJUAN SWANSON MD Dec 27, 2021 09:51
--- NOTE | 2021-12-27 10:59 | Permanent Pacemaker Implant ---
Dual Chamber Pacemaker Implant PROCEDURE PHYSICIAN: Dejuan Corona DUAL CHAMBER PACEMAKER IMPLANTATION: DATE OF PROCEDURE: 12/27/21 INDICATION: Complete heart block, symptomatic bradycardia PREOPERATIVE DIAGNOSIS: Complete heart block POSTOPERATIVE DIAGNOSIS: Complete heart block HISTORY: Dual-chamber permanent pacemaker was recommended. PROCEDURE PERFORMED: 1. Dual-chamber permanent pacemaker implantation. 2. Fluoroscopy. 3. Central venous access. ANESTHESIA: Local anesthesia, conscious sedation. COMPLICATIONS: None. ESTIMATED BLOOD LOSS:20 mL. SPECIMENS: None. ORAL ANTICOAGULATION: None. FLUOROSCOPY TIME: FLUOROSCOPY DOSE: CONTRAST DOSE: PROCEDURE DETAILS: The patient is a 81 male admitted with non-ST elevation myocardial infarction, had 2-1 AV block persistent with intermittent complete heart block. Overnight he continued to be severely bradycardic and had multiple episodes of heart rate in the 30s. Patient has been complaining of generalized fatigue, loss of energy and shortness of breath with minimal exertion. Decision was made to proceed with dual-chamber pacemaker, patient was at an increased risk of bleeding, he understand the risk and benefits and after all of the patients questions were answered, the patient was brought to the EP Lab. The patient's left chest was prepped and draped in sterile fashion. A 2 inch horizontal incision was made 1 cm below the clavicle and dissection carried down to the pectoralis fascia. Using the modified Seldinger technique and under fluoroscopy guidance, the anterior aspect of the left axillary vein was accessed 2 times. The J wires were secured to the drapes with a mosquito clamp. A 7-[place] sheath was introduced over one of the J-wires. The RV lead was then inserted. The RV lead was directed across the tricuspid valve to the apical septal portion of the right ventricle. The position was checked in TAWANNA and ANDINO views. The screw was deployed and the lead connected to the network programmer. Close sensing and pacing thresholds were obtained. Diaphragmatic pacing was ruled out. The lead was secured with 2-0 silk ties to the underlying muscle and fascia. Next, a 7-[place] sheath was introduced through the remaining J-wire. An atrial lead was then introduced and guided to the level of the right appendage. The screw was deployed and the lead was connected to the interrogator. Good sensing and pacing thresholds were obtained. Diaphragmatic pacing was ruled out. The leads were secured with 2-0 silk ties to the underlying muscle and fascia. The leads were connected to the device in a hermetic fashion. The device and leads were placed in the pocket. Aggressive irrigation with saline solution was done. The device was secured to the underlying muscle and fascia with a 2-0 silk tie. interrogation of the device revealed good integrity of all the leads and good connections. The wound was then closed using 2 layers. The first layer was interrupted 2-0 absorbable Vicryl suture. The last layer was a single subcuticular layer with 4- 0 Vicryl suture. Half inch Steri-Strips and a small dressing were then applied to the wound. The patient tolerated the procedure well and was returned to the recovery room in stable condition with stable vital signs. DEVICE INFORMATION: TATIANA XT DR MRI [id number] RA LEAD: [id number] RV LEAD: [id number] PER-OPERATIVE DEVICE INTERROGATION: Good sensing and capture activity IMMEDIATE POSTOPERATIVE DEVICE INTERROGATION: Atrial lead, threshold 0.4 ms at 0.6 V, impedance 779, P wave 2.1 mV Ventricular lead, threshold 0.4 ms at 0.5 V, impedance 760, R wave 10 mV PLAN: The patient transferred to the ICU. We will continue with two more doses of IV antibiotics. We will check a chest x-ray and interrogate the device in the morning. The patient will continue on oral antibiotics for 5 days. CONCLUSION: Successful implantation of dual-chamber pacemaker with no complications DEJUAN CORONA MD Dec 27, 2021 10:59
[2021-12-27] MEDS ORDERED: PATIENT MAY USE OWN MEDS, ALL PO SCH (11:00)
[2021-12-27] MEDS ORDERED: NS IV 1000 ML 1,000 ML IV SCH (11:00)
--- NOTE | 2021-12-27 12:13 | Diagnostic Imaging Report ---
INDICATION: Pacemaker placement. Comparison made with prior examination from 10/24/2021 FINDINGS: There is cardiomegaly. There has been interval placement of a transvenous pacemaker which overlies left hemithorax. There is no pleural effusion or pneumothorax. The mediastinum is unremarkable. IMPRESSION: Interval placement of a transvenous pacemaker without evidence of pneumothorax. Cardiomegaly. Dictated by: Dictated on workstation # [id number]
[2021-12-27] MEDS: ceFAZolin INJECTION 1,000 MG in NS (IVPB) 50 ML IV SCH ×2 (14:20→21:06)
[2021-12-28] MEDS: NS IV 1000 ML 1,000 ML IV SCH (04:16)
[2021-12-28] MEDS: ceFAZolin INJECTION 1,000 MG in NS (IVPB) 50 ML IV SCH (05:37)
[2021-12-28] MEDS ORDERED: CLOP75TA28 PO (08:32)
[2021-12-28] MEDS ORDERED: PANT40TA2 PO (08:32)
[2021-12-28] MEDS ORDERED: CEFU500T63 PO (08:32)
[2021-12-28] MEDS ORDERED: ATOR10TA PO (08:32)
--- NOTE | 2021-12-28 08:33 | Discharge Inst-Post CATH ---
Discharge Inst-CATH/EP Problems Reviewed?: Yes Post Cardiac Cath/EP D/C Inst Follow Up/Plan Appointment with Dr. Corona's office next week <b>CARDIAC CATH/EP PROCEDURE DISCHARGE INSTRUCTIONS</b> ACTIVITY * Go Home directly and rest. * Limit activity of the leg (or wrist if it was used) for 7 days including aerobics, swimming, jogging, bicycling, etc. * Restrict stair-climbing for 7 days if possible, if not, climb up with your non-cath leg, then bring together on the same step. * Avoid lifting, pushing, pulling or excessive movement of the affected extremity for 7 days. * Customary sexual activity may be resumed after 2 days-use caution not to use a position that strains or causes pain to the affected extremity. * No driving for 24 hours. * NO SMOKING. * Avoid straining for bowel movements for 7 days. * Gentle walking on level ground is allowed. * Returning to work will depend on the type of procedure and the results. Your doctor will discuss this with you. CALL YOUR DOCTOR FOR ANY OF THE FOLLOWING: *If bleeding from the puncture site occurs- Apply gentle pressure to site with clean cloth and call your doctor or EMS. * If a knot or lump forms under the skin, increases in size, or causes pain. * If bruising appears to be worsening or moving further down your leg instead of disappearing. * Temperature above 101 F. CARE OF YOUR GROIN INCISION; * Bruising or purple discoloration of the skin near the puncture site is common. * You may shower only, no bathtub bathing for 5 days. Be careful to avoid slipping as your leg may feel stiff. * If a closure device was used on your femoral artery, please see the attached guide regarding care of the device and your leg. * Leave dressing on FOR 24 hours. CARE OF YOUR WRIST INCISION; * Bruising or purple discoloration of the skin near the puncture site is common. * You may shower. * DO NOT submerge wrist. * Leave dressing on FOR 24 hours. DEJUAN CORONA MD Dec 28, 2021 08:33
--- NOTE | 2021-12-28 08:38 | Cardiology Discharge Summary ---
Discharge Summary Hospital Course Problems Reviewed?: Yes Hospital Course Date of Admission: Dec 26, 2021 at 10:45 Admission Diagnosis : Family Physician/Provider: Kole Villar MD Date of Discharge: 12/28/21 Discharge Diagnosis: [ Non-ST elevation myocardial infarction Coronary artery disease Complete heart block Bradycardia] Hospital Course: [Chest pain, unstable angina, significant EKG changes after 4 minutes exercise on treadmill suggestive of acute myocardial infarction Most probably it is non-ST elevation myocardial infarction, emergency cardiac catheterization was carried out IVUS to the left main showing mild disease, severe stenosis in the right coronary artery with successful stenting. I explained in length to the patient the importance of adherence to the aspirin and Plavix. Coronary artery disease, cardiac catheterization was carried out on December 26, 2021 showing moderate stenosis in the ostium of the left main, IVUS was done and showing no significant obstructive disease at the left main, patient has severe stenosis at the distal right coronary artery successful balloon angioplasty and stenting using junior point stent 4 x 18 mm expanded to 4.2 mm with excellent results. Mild ectasia in the proximal and distal right coronary artery All questions were answered. Had a long discussion with the patient and his about the procedure and the pros and cons. Severe bradycardia with 2-1 AV block and multiple episodes of complete heart block, heart rate is in the 30s, patient asymptomatic. Status post dual-chamber pacemaker implantation. I had a long discussion with the patient and his about the post implant recommendation. I will arrange for follow-up next week in my office for wound check Educated and his about the pacemaker Echocardiogram was done on December 02, 2021 showing normal LV size with EF 65 to 70%, right atrium dilated, aortic valve sclerosis, mild to moderate regurgitation, PA pressure 35 to 40 mmHg. Increased risk of sleep apnea, complaining of fatigue, feels that he stops breathing at night. Having increasing dyspnea on exertion, probably secondary to severe bradycardia Lipid profile was done on June 19, 2021 showing total cholesterol 155, triglyceride 57, HDL 47, LDL 94.I started Lipitor 10 mg daily Mild bilateral carotid stenosis nonobstructive disease History of back surgery knee surgery and prostate surgery ] Labs and Pending Lab Test: Microbiology 12/26/21 MRSA Screen - Final, Complete MRSA not isolated Home Meds Active Cefuroxime (Cefuroxime Axetil) 500 Mg Tablet 500 Mg PO BID Lipitor (Atorvastatin Calcium) 10 Mg Tablet 10 Mg PO DAILY Protonix (Pantoprazole Sodium) 40 Mg Tablet. 40 Mg PO DAILY Clopidogrel (Clopidogrel Bisulfate) 75 Mg Tablet 75 Mg PO DAILY Reported Edex (Alprostadil) 40 Mcg Kit 40 Mcg IC UD PRN [T Male Test. Boost] 2 Ea PO DAILY Tylenol Pm Ex-Strength Caplet (Acetaminophen/Diphenhydramine) 1 Each Tablet 2 Each PO HS Multivitamin 1 Each Tablet 1 Each PO DAILY Aspirin EC (Aspirin) 81 Mg Tablet.dr 81 Mg PO DAILY Glucosamine & Chondroitin Cap (Glucosa Simeon 2Kcl/Chondroitin Simeon) 1 Each Capsule 1 Each PO DAILY Celebrex (Celecoxib) 200 Mg Capsule 200 Mg PO DAILY Mercaptopurine 50 Mg Tablet 100 Mg PO DAILY TAKES 2 (50MG) TABS Donepezil HCl 10 Mg Tablet 10 Mg PO DAILY Assessment/Pt DC Instructions I had a long discussion with the patient and his about post cardiac cath care and post pacemaker implant care. All questions were answered about the pacemaker and his cardiac catheterization Educated about the importance of adherence to the aspirin and Plavix treatment Educated about taking Ceftin for the next 5 days Educated about the pros and cons for post maker implant and all questions were answered Discharge Diet: Cardiac Diet Discharge Physical Examination Allergies: Coded Allergies: No Known Drug Allergies (Unverified , 10/24/21) General Appearance: No Apparent Distress, WD/WN HEENT: PERRL/EOMI, TMs Normal, Normal ENT Inspection, Pharynx Normal Respiratory: Chest Non Tender, Lungs Clear, Normal Breath Sounds, No Accessory Muscle Use, No Respiratory Distress Cardiovascular: Regular Rate, Rhythm, No Edema, No Gallop, No JVD, No Murmur, Normal Peripheral Pulses Gastrointestinal: Normal Bowel Sounds, No Organomegaly, No Pulsatile Mass, Non Tender, Soft Extremity: Normal Capillary Refill, Normal Inspection, Normal Range of Motion, Non Tender, No Calf Tenderness, No Pedal Edema Skin: Normal Color, Warm/Dry Neurologic/Psychiatric: Alert, Oriented x3, No Motor/Sensory Deficits, Normal Mood/Affect, spiral binder II-XII Norm as Tested Clinical Quality Measures Admission Status Admission Status: Inpatient Order (span 2 midnights) Reason for Inpatient Admission: Non-ST elevation myocardial infarction Complete heart block AMI/AHF: Ejection Fraction: Normal LVSF ASA po Prior to arrival: DEJUAN Duran MD Dec 28, 2021 08:38
[2021-12-28] MEDS: ASPIRIN E.C. 81 MG (ECOTRIN) TAB PO SCH (09:01)
[2021-12-28] MEDS: CLOPIDOGREL 75 MG (PLAVIX) TABLET PO SCH (09:01)
== END 2021-12-28 09:28 | disposition home or self-care (01) | DRG 242 ==
LOC: EDUNIT# 09:07 → ER 09:09 → CATH 09:35 → ICU 10:45 → CSD 12-27 16:05
PROVIDERS: ADMIT Internal Medicine Cardiovascular Disease; ATTEND Internal Medicine Cardiovascular Disease
PROC: 027034Z Dilation of Coronary Artery, One Artery with Drug-eluting Intraluminal Device, Percutaneous Approach (ICD-10-PCS; 2021-12-26)
PROC: 4A023N7 Measurement of Cardiac Sampling and Pressure, Left Heart, Percutaneous Approach (ICD-10-PCS; 2021-12-26)
PROC: B2111ZZ Fluoroscopy of Multiple Coronary Arteries using Low Osmolar Contrast (ICD-10-PCS; 2021-12-26)
PROC: B2151ZZ Fluoroscopy of Left Heart using Low Osmolar Contrast (ICD-10-PCS; 2021-12-26)
PROC: 0JH606Z Insertion of Pacemaker, Dual Chamber into Chest Subcutaneous Tissue and Fascia, Open Approach (ICD-10-PCS; principal; 2021-12-27)
PROC: 02H63JZ Insertion of Pacemaker Lead into Right Atrium, Percutaneous Approach (ICD-10-PCS; 2021-12-27)
PROC: 02HK3JZ Insertion of Pacemaker Lead into Right Ventricle, Percutaneous Approach (ICD-10-PCS; 2021-12-27)
PROC: 02HV33Z Insertion of Infusion Device into Superior Vena Cava, Percutaneous Approach (ICD-10-PCS; 2021-12-27)
DX: I44.2 Atrioventricular block, complete (principal); I21.4 Non-ST elevation (NSTEMI) myocardial infarction; I25.110 Atherosclerotic heart disease of native coronary artery with unstable angina pectoris; I10 Essential (primary) hypertension; R00.1 Bradycardia, unspecified; I65.23 Occlusion and stenosis of bilateral carotid arteries
CPT/HCPCS: 33208; 36415; 71045; 80048; 80053; 80061; 83735; 83874; 84484; 85025; 85027; 85347; 85610; 85730; 87081; 93005; 93041; 93458

== ENCOUNTER → 2021-12-26 | Outpatient (CLI) | payer MEDICARE ==
[~2021-12-26] MED LIST: ACET-3075 PO; ASPI-1238 PO; ATOR10TA PO; CATHETER FLUSH 10 ML SYR IV PRN; CEFU500T63 PO; CELE200C PO; CLOP75TA28 PO; DONE10TA41 PO; GLUC1CAP37 PO; MERC50TA PO; MULT-1136 PO; PANT40TA2 PO; REGADENOSON 0.4 MG/5 ML SYR (LEXISCAN) IV ONE; [UNRECOGNIZED DRUG - CODE] IC; [UNRECOGNIZED DRUG - OTHER] PO
[2021-12-26 08:44] VITALS: BP 144/79
--- NOTE | 2021-12-26 12:16 | Cardiology Stress Test Report ---
Stress Test Report Date of Procedure/Referring: Date of Procedure: Dec 26, 2021 PCP Dejuan Corona MD Admitting Physician Kole Villar MD Indications: CP Baseline Heart Rate: 38 Baseline Blood Pressure: Blood Pressure Systolic: 144 Blood Pressure Diastolic: 79 Vital Signs Date Time Temp Pulse Resp B/P (MAP) Pulse Ox O2 Delivery O2 Flow Rate FiO2 12/26/21 08:44 38 144/79 (100) 90 Room Air Baseline Vital Signs Vital Signs Date Time Temp Pulse Resp B/P (MAP) Pulse Ox O2 Delivery O2 Flow Rate FiO2 12/26/21 08:44 38 144/79 (100) 90 Room Air Baseline EKG: Baseline EKG: Sinus bradycardia Summary: Patient received 9.92 mCi of technetium 9 9 Myoview and the resting images were acquired He was started on the treadmill. After 3 minutes and 58 seconds patient was unable to exercise any further and it shows underlying sinus tachycardia with 2- 1 AV block. Patient started to have chest pain, had ST elevation in aVR, lead V1, had hyperacute T wave in lead II, 3, aVF, ST depression in V2, V3, V4, frequent PVCs. This was terminated, continue to have persistent EKG changes, given sublingual nitroglycerin. Patient was sent to the emergency room for possible acute ST elevation myocardial infarction Images were reviewed, only resting images showing mild decrease uptake at the inferior wall Conclusion: 1. Patient was able to exercise for 3 minutes 58 seconds on standard Bashir protocol, had significant sinus bradycardia then 2-1 AV block and complete heart block during exercise 2. Significant EKG changes suggestive of coronary artery disease with ST eleva tion in V1 and aVR. 3. Significant chest pain with frequent PVCs relieved by nitroglycerin 4. Resting images were reviewed showing inferior wall ischemia. DEJUAN CORONA MD Dec 26, 2021 12:16
== END ==
LOC: CARD 07:30
PROVIDERS: ATTEND Internal Medicine Cardiovascular Disease
DX: I49.9 Cardiac arrhythmia, unspecified (principal); I10 Essential (primary) hypertension
CPT/HCPCS: 78451; 93017; A9500

== ENCOUNTER 2022-09-08 12:48 | Outpatient (CLI) | payer MEDICARE ==
[~2022-09-08 12:48] MED LIST changes: -CATHETER FLUSH 10 ML SYR IV PRN; -REGADENOSON 0.4 MG/5 ML SYR (LEXISCAN) IV ONE
== END 2022-09-08 13:15 ==
LOC: SLEEP 12:48
PROVIDERS: ATTEND Internal Medicine Cardiovascular Disease
DX: G47.33 Obstructive sleep apnea (adult) (pediatric) (principal); I10 Essential (primary) hypertension
CPT/HCPCS: G0399